=== PATIENT | male | born 1965 | race African-American/Black ===

== ENCOUNTER 2017-09-25 08:47 | Emergency (ER) | payer OTHER ==
[~2017-09-25] VITALS: Ht 193 cm; Wt 136.1 kg
--- NOTE | ~2017-09-25 | EKG ---
[facility] [place] [address] ELECTROCARDIOGRAM REPORT Name: ANGELIC WELLINGTON [facility] [id number] Admission: 09/25/17 Attend Phys: Discharge: Date of : 69 Report #: [id number] THIS REPORT FOR: //name// [facility] ED Test Date: 2017-09-25 Test Time: 08:55:40 Pat Name: ANGELIC WELLINGTON Department: Room: Gender: Licensing Analyst: Chi GAMINO RN : [id number] Requested By: Mounika North Order Number: [id number] MD: Jackson Arrieta Measurements Intervals Tower Rate: 57 P: -1 SC: 230 QRS: -26 QRSD: 111 T: -23 QT: 431 QTc: 420 Interpretive Statements Sinus bradycardia Borderline prolonged SC interval Left ventricular hypertrophy Nonspecific T abnormalities Compared to ECG 10/11/1997 06:36:00 T-wave abnormality now present Electronically Signed On 09-25-2017 16:57:40 [employer]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
--- NOTE | ~2017-09-25 | HC ---
[facility] [place] [address] CONSULTATION Name: ANGELIC WELLINGTON BERT Room #: DEP MAT Barrow#: [id number] Admission: 09/25/17 Attend Phys: Discharge: 09/25/17 Date of : 69 Report #: [id number] THIS REPORT FOR: //name// CC: Mounika Brunner DATE OF SERVICE: 09/25/2017 HISTORY OF PRESENT ILLNESS: This is a 52-year-old male patient whose consultation was requested from Emergency Room as a stroke protocol. This patient was evaluated by me multiple times and he is a complicated patient. He gives a history that 2 weeks ago, he had an episode where he could not express himself. He was still able to understand things, but was not able to express himself. He also had some dizziness and headache with it. Since then, he has periodic headache, but the headache was worse this morning. Along with that he developed diplopia. He was ataxic and was not able to walk and he was brought to Emergency Room. He initially had a noncontrast CT of the head that was unremarkable. Chest x-ray showed a question of aneurysm versus dissection. Subsequently, he had a CT scan of the chest that excluded that. Initial plan was to transfer him to [facility] and [facility] was contacted. They recommended CT angio, but the opacification of the vessel is not very good on CT angio of the head and neck. This is mainly because of timing. It did not show any definite abnormality. I did an MRI of the brain and diffusion weighted images does not appear to be showing any definite abnormality either. I have been able to examine him only partly because of all the things going on with him. He is still is pretty unstable in walking, he still feels dizzy. 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 He does not appear to have any atrial fibrillations and he is not on any anticoagulation. PHYSICAL EXAMINATION: His blood pressure is running about 152/103, respirations 17, pulse is 56, temperature is 98.2. I had numerous discussions with the patient and the family. I do not know the etiology of the patient's symptoms. He has no prior history of migraine. 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 So far, his workup has been unremarkable. We discussed about tPA. The patient was within the window for tPA, but the problem with him was that initially aortic dissection could not be excluded and subsequently the question of aneurysms cannot be excluded. After that, he was outside the window. I discussed that aspect with the patient and the family and no tPA was given because aneurysm could not be excluded and this patient's deficit was relatively mild and initially aortic dissection was not excluded. [facility] stroke team was also agreeable with that. I do not know what the etiology of the patient's symptom is. I do not know whether this patient has a vasospasm, but he had two of these spells and it was my opinion that this patient should be [facility] [address] [place] [address] CONSULTATION Name: ANGELIC WELLINGTON Room #: MARSHAL Barrow#: [id number] Admission: 09/25/17 Attend Phys: Discharge: 09/25/17 Date of : 69 Report #: [id number] evaluated just because he is so young and the best place to get him evaluated to make sure that there is no etiology and etiology is excluded is in [facility] with the stroke team. I called them again myself and they were nice enough to accept him and I talked to the family and after the MRI we will transfer the patient there and let them look at him to see what further workup need to be done in this patient to exclude any pathology and about their diagnosis. I also talked to Dr. Akhtar. More than 70 minutes of time was spent taking care of this patient today and majority of that time was spent counseling this patient and the family and coordinating his care. It is a very unusual case where the symptoms are pretty prominent and no definite abnormality has been demonstrated. I think he needs further workup before we can say that it is just idiopathic. cranial nerve palsy and I think an opinion from [facility] is very desirable in this young individual and that has been arranged. <ELECTRONICALLY SIGNED> By: Esteban Verduzco MD 09/26/17 1041 [id number] Esteban Verduzco MD /nt
[~2017-09-25 08:47] MED LIST: AMOXICILLIN500 M1 PO; NORCO 5-325 TA1 EACH PO; NORVASC 5 MG TAB5 MG PO
[2017-09-25 09:36] LABS: ABSOLUTE NEUTROPHILS 2.7 thou/uL (1.4-8.2); BASOPHILS 0.7 % (0.0-2.0); EOSINOPHILS 3.3 % (0.0-3.0); HEMATOCRIT 43.1 % (42.0-52.0); HEMOGLOBIN 14.3 gm/dL (14.0-18.0); LYMPHOCYTES 40.1 % (24.0-44.0); MCHC 33.1 g/dL (28.0-37.0); MCV 84.6 fL (80.0-100.0); MONOCYTES 7.3 % (1.0-8.0); PLATELET COUNT 185 thou/uL (150-400); POLYS 48.6 % (36.0-66.0); RDW 13.2 % (10.5-14.5); WBC 5.6 thou/uL (4.0-11.0)
[2017-09-25 09:41] LABS: CALCIUM 9.1 mg/dL (8.5-10.1); POTASSIUM 3.5 mmol/L (3.5-5.1)
[2017-09-25 09:50] LABS: PROTIME 10.2 Seconds (9.3-11.4)
[2017-09-25 09:51] LABS: ALBUMIN 3.7 g/dL (3.4-5.0); TOTAL BILIRUBIN 0.3 mg/dL (<0.1-1.0); TOTAL PROTEIN 7.1 g/dL (6.4-8.2); TROPONIN-I 0.23 ng/mL (<0.06)
[2017-09-25 10:28] LABS: URINE BILIRUBIN NEGATIVE (Negative); URINE BLOOD NEGATIVE (Negative); URINE CLARITY CLEAR; URINE COLOR YELLOW; URINE GLUCOSE-RANDOM* NEGATIVE (Negative); URINE KETONES NEGATIVE (Negative); URINE LEUKOCYTES NEGATIVE (Negative); URINE NITRITE NEGATIVE (Negative); URINE PROTEIN (DIPSTICK) NEGATIVE (Negative); URINE UROBILINOGEN 0.2 E.U./dl (0.2-1.0)
== END 2017-09-25 12:47 | disposition short-term general hospital (02) ==
LOC: ER 08:47
PROVIDERS: Nurse Practitioner Family
DX: H49.01 Third [oculomotor] nerve palsy, right eye (principal); R79.89 Other specified abnormal findings of blood chemistry; R51 Headache; R68.89 Other general symptoms and signs; I10 Essential (primary) hypertension; F17.210 Nicotine dependence, cigarettes, uncomplicated